=== PATIENT | male | born 1980 | race Caucasian/White ===

== ENCOUNTER 2019-01-09 10:43 | Outpatient (CLI) | payer OTHER ==
--- NOTE | 2019-01-09 12:12 | RAD ---
LUMBAR SPINE 4 VIEWS: HISTORY: Lumbar disk degeneration. Lumbar radiculopathy. COMPARISON: None. FINDINGS: Five lumbar-type vertebral bodies. Lumbar spine vertebral body height is maintained. There is no fr acture. In the neutral position, there is no spondylolisthesis or spondylolysis. No abnormal motion upon extension or flexion in the weightbearing flexion/extension views. Mild loss of disk space height at L5-S1. IMPRESSION: 1. Mild loss of disk space height at L5-S1. 2. No spondylolisthesis. No spondylosis. No abnormal motion upon flexion or extension. POS: ARIES
== END 2019-01-09 10:44 | disposition home or self-care (01) ==
LOC: BICRAD 10:43
PROVIDERS: ATTEND Nurse Practitioner Family
DX: M51.16 Intervertebral disc disorders with radiculopathy, lumbar region (principal); M54.17 Radiculopathy, lumbosacral region
CPT/HCPCS: 72120

== ENCOUNTER 2019-10-29 08:18 | Observation (INO) | payer BC, SELFPAY ==
--- NOTE | 2019-10-29 08:36 | CT ---
Exam: Head CT without contrast HISTORY: Left facial droop and left arm weakness. COMPARISON: none FINDINGS: Hemorrhage: No intraparenchymal hemorrhage or extra-axial hematoma. Brain parenchyma: Cortical mathias-white matter differentiation is preserved. No mass effect or midline shift. Basilar cisterns are patent. Ventricular system: Ventricles and sulci are patent and symmetric. Calvarium: Intact. Sinuses and mastoid air cells: Mild mucosal thickening of the visualized paranasal sinuses IMPRESSION: No acute intracranial process. Results of study discussed with Dr. Munoz 10/31/2019 8:33 AM Code CR
[2019-10-29 08:45] LABS: #Eosinphils 0.3 thou/uL (0.0-0.7); #Lymphocytes 1.8 thou/uL (1.20-3.40); #Monocytes 0.7 thou/uL (0.11-0.59); #Neutrophils 3.1 thou/uL (1.40-6.50); %Basophils 0.6 % (0.0-1.0); %Eosinophils 5.4 % (0.0-10.0); %Lymphocytes 30.7 % (21.0-51.0); %Monocytes 11.6 % (0.0-10.0); %Neutrophils 51.7 % (42.0-75.0); Hemoglobin 14.2 g/dL (14.0-18.0); Mean Corpuscular HGB CONC 33.4 g/dL (32.0-36.0); Mean Corpuscular Hemoglobin 31.3 pg (27.0-31.0); Mean Corpuscular Volume 93.7 fL (78.0-98.0); Mean Platelet Volume 7.1 fL (7.4-10.4); Platelet Count 221 thou/uL (130-400); RBC Distribution Width 11.4 % (11.5-14.5); Red Blood Cell (RBC) Count 4.55 mill/uL (4.70-6.10); White Blood Cell (WBC) Count 5.9 thou/uL (4.8-10.8)
[2019-10-29] MEDS ORDERED: Aspirin Chewable 81 MG TAB ONE (08:54)
[2019-10-29 09:07] LABS: ALT (SGPT) 15 U/L (8-55); AST (SGOT) 17 U/L (5-34); Albumin 4.5 g/dL (3.5-5.0); Alkaline Phosphatase 41 U/L (40-110); Anion Gap 8 mmol/L (10-20); BUN (Urea Nitrogen) 14 mg/dL (8.9-20.6); Bilirubin, Total 0.5 mg/dL (0.2-1.2); Calc. Creatinine Clearance 0 mL/min (70-130); Calcium 9.4 mg/dL (7.8-10.44); Carbon Dioxide 28 mmol/L (22-29); Chloride 105 mmol/L (98-107); Estimated GFR-MDRD 84; Globulin 2.6 g/dL (2.4-3.5); Glucose 99 mg/dL (70-105); Potassium 4.2 mmol/L (3.5-5.1); Protein, Total 7.1 g/dL (6.0-8.3); Sodium 137 mmol/L (136-145)
[2019-10-29 09:14] LABS: Bilirubin Negative (Negative); Blood, Urine Negative (Negative); Clarity Clear (Clear); Glucose, Urine (Dipstick) Normal (Negative); Leukocyte Negative Leu/uL (Negative); Nitrite Negative (Negative); Protein, Urine (Dipstick) Negative (Neg-Trace); Urobilinogen Normal mg/dL (Less than 2)
--- NOTE | 2019-10-29 09:24 | RAD ---
PORTABLE CHEST: Date: 10/29/19 HISTORY: Altered mental status. Syncope. Weakness. FINDINGS: Heart size and mediastinum are within normal limits. The lungs are clear of infiltrates. There are no significant bony findings. IMPRESSION: No active intrathoracic disease. POS: TPC
--- NOTE | 2019-10-29 10:49 | PDOC.FPRHP ---
- History of Present Illness Chief Complaint: L sided weakness History of Present Illness: 39 yo M with no PMH presents for L sided face, arm, and leg weakness that started on waking this morning at 5 AM. Last known normal 0 last night. Pt reports he woke up at 5 to get ready for work, and had blurry vision and was dizzy. He tried to drive to work, but he kept hitting the rumble strips when he thought he was in the middle of the michael so drove back home. states she noticed his L face was drooping, and L leg and arm were dragging. His symptoms have since resolved, although patient admits he is intermittently dizzy. Patient does report he has had some increased stress lately due to his 's mother's recent from cancer. He worries about his . 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 Both patient and are tearful in the room when discussing her mother. ED Course: EKG - sinus CT head -sinus congestion CXR wnl - Allergies/Adverse Reactions Allergies Allergy/AdvReac Type Severity Reaction Status Date / Time No Known Drug Allergies Allergy Verified 10/29/19 11:18 - Home Medications Medication Instructions Recorded Confirmed Type Cetirizine HCl 10 mg PO DAILY PRN 10/29/19 10/29/19 History - History PMHx: chronic back pain with DJD, environmental allergies PSHx: none FHx: father and grandfather - DM2; both his daughters have milagros thyroiditis. No heart disease. Social: 20 oz coke with audelia meléndez nightly; no tobacco or drug use - Review of Systems General: denies: fever/chills, weight/appetite/sleep changes Eyes: reports: vision changes. denies: eye pain ENT: reports: nasal congestion. denies: rhinorrhea Respiratory: reports: congestion. denies: cough, shortness of breath Cardiovascular: denies: chest pain, palpitation Gastrointestinal: denies: nausea, vomiting, diarrhea, constipation, abdominal pain, GI bleeding Genitourinary: denies: incontinence, dysuria, other (no hematuria) Skin: reports: other (he had a slowly healing skin spot on his face, he is going to see radiotelephone operator for) Musculoskeletal: denies: pain, tenderness Neurological: reports: numbness, weakness Psychological: reports: anxiety. denies: depression - Vital signs BP: [155/94] HR: [61] RR: [20] Tmax: [98.8] Pox: [99]% on [RA] Wt: [107 kg] - Physical Exam Constitutional: NAD, awake, alert and oriented HEENT: normocephalic and atraumatic, PERRLA, EOMI, conjunctiva clear, TM's clear and intact, MMM, oropharynx clear, good dention Neck: supple, no LAD Heart: RRR, normal S1/S2, no murmurs/rubs/gallops Lungs: CTAB, no respiratory distress, good air movement, no rales/rhonchi, no wheezing Abdomen: soft, non-tender, no masses/distention Musculoskeletal: normal structure, normal tone Neurological: no focal deficit, CN II-XII intact, normal sensation Skin: no rash/lesions, good turgor, capillary refill <2 seconds Heme/Lymphatic: no unusual bruising or bleeding, no purpura Psychiatric: normal mood and affect, good judgment and insight, intact recent and remote memory FMR H&P: Results - Labs Result Diagrams: 10/29/19 08:34 10/29/19 08:34 Lab results: WBC 5.9 thou/uL (4.8-10.8) 10/29/19 08:34 Hgb 14.2 g/dL (14.0-18.0) 10/29/19 08:34 Hct 42.6 % (42.0-52.0) 10/29/19 08:34 MCV 93.7 fL (78.0-98.0) 10/29/19 08:34 Plt Count 221 thou/uL (130-400) 10/29/19 08:34 Neutrophils % 51.7 % (42.0-75.0) 10/29/19 08:34 Sodium 137 mmol/L (136-145) 10/29/19 08:34 Potassium 4.2 mmol/L (3.5-5.1) 10/29/19 08:34 Chloride 105 mmol/L (98-107) 10/29/19 08:34 Carbon Dioxide 28 mmol/L (22-29) 10/29/19 08:34 BUN 14 mg/dL (8.9-20.6) 10/29/19 08:34 Creatinine 0.99 mg/dL (0.7-1.3) 10/29/19 08:34 Glucose 99 mg/dL (70-105) 10/29/19 08:34 Calcium 9.4 mg/dL (7.8-10.44) 10/29/19 08:34 Total Bilirubin 0.5 mg/dL (0.2-1.2) 10/29/19 08:34 AST 17 U/L (5-34) 10/29/19 08:34 ALT 15 U/L (8-55) 10/29/19 08:34 Alkaline Phosphatase 41 U/L (40-110) 10/29/19 08:34 Serum Total Protein 7.1 g/dL (6.0-8.3) 10/29/19 08:34 Albumin 4.5 g/dL (3.5-5.0) 10/29/19 08:34 Urine Ketones Negative mg/dL (Negative) 10/29/19 08:40 Urine Blood Negative (Negative) 10/29/19 08:40 Urine Nitrite Negative (Negative) 10/29/19 08:40 Ur Leukocyte Esterase Negative Reyna/uL (Negative) 10/29/19 08:40 - EKG Interpretation EKG: NSR FMR H&P: A/P - Problem List (1) TIA (transient ischemic attack) Current Visit: Yes Status: Acute Code(s): G45.9 - TRANSIENT CEREBRAL ISCHEMIC ATTACK, UNSPECIFIED - Plan 39 yo M presents for TIA vs Stroke TIA vs Stroke -L sided weakness, L facial droop, vision changes. Symptoms now resolved. -Current NIH of 0 -CT head negative. EKG NSR. -MRI and CTA Head/neck pending -CBC, CMP, UA are all WNL -random glucose <100, although strong family history of DM, does not have symptoms and random glucose normal, no need for A1C -TSH pending -FLP pending. Calculate ASCVD risk and consider starting a statin -ASA 325 mg; plan to start daily aspirin -Allow permissive hypertension 220/110 PCP: None Diet: Regular DVT ppx: not indicated per RENE scoring criteria. Encourage ambulation. Dispo: Admit to tele obs for monitoring. MRI and CTA pending. Likely discharge to home tomorrow. FMR H&P: Upper Level - Plan Date/Time: 10/29/19 1045 I, [], have evaluated this patient and agree with findings/plan as outlined by market research intern resident. Pertinent changes/additions are listed here.
[2019-10-29] MEDS ORDERED: Acetaminophen 325 MG TAB PO PRN (10:52)
[2019-10-29] MEDS ORDERED: Ondansetron ODT 4 MG TAB PO PRN (10:52)
[2019-10-29 11:04] LABS: Cardiac Risk 3.2 (Less than 4.5)
--- NOTE | 2019-10-29 12:02 | CT ---
INDICATION: Stroke COMPARISON: None TECHNIQUE: CT angiogram of the head and neck are performed in the axial plane. Three-dimensional refo rmatted images are submitted for interpretation. FINDINGS: CTA OF THE HEAD WITH AND WITHOUT CONTRAST: POSTCONTRAST CT OF BRAIN: Pathologic enhancement: No pathologic enhancement the brain. Postcontrast soft tissue neck CT: Sinuses: Mild mucosal thickening of the paranasal sinuses.. Orbits: Bilateral ocular lenses are appropriately located. Both globes are intact. Retrobulbar fat is preserved. Symmetric attenuation the optic nerves and ocular rectus muscles. Salivary glands:Symmetric attenuation Thyroid gland: Mildly heterogeneous Lymph nodes: No evidence of lymphadenopathy by size criteria. Paraspinal muscles: Symmetric attenuation of the sternocleidomastoid muscles. Appropriate attenuation of the paraspinal muscles. Cervical spine:Vertebral body height is maintained. No fracture. No significant central canal stenosi s or significant neural foraminal narrowing. Limited evaluation by technique. Upper mediastinum and lung apices: Unremarkable CTA OF THE NECK WITH CONTRAST: Aorta: Appropriate enhancement and luminal diameter of the visualized aorta Right carotid artery: Appropriate enhancement and luminal diameter. No significant stenosis based upo n NASCET criteria Left carotid: Appropriate enhancement and luminal diameter. No significant stenosis based upon NASCET criteria Subclavian arteries:Symmetric enhancement and luminal diameter. Vertebral arteries:Appropriate enhancement and luminal diameters of the cervical vertebral arteries. Vertebral arteries are essentially codominant CTA OF THE BRAIN: Intracranial internal carotid arteries:Appropriate enhancement and luminal diameter Anterior circulation: Appropriate enhancement and luminal diameter of the A1 and M1 segments. Appropr iate enhancement and luminal diameter the A2 segments and proximal MCA branches Intracranial vertebral arteries: Appropriate enhancement and luminal diameter. Posterior circulation: Appropriate enhancement and luminal diameter the basilar artery and bilateral P1 segments IMPRESSION: 1. No hemodynamically significant stenosis, occlusion or aneurysmal formation. Results of study discussed with Dr. Munoz 10/29/2019 at 11:59 AM Code CR
[2019-10-29 13:09] VITALS: TEMP 97.7
[2019-10-29 13:10] VITALS: BMI 31.2
[2019-10-29] MEDS ORDERED: Iopamidol-370 76% 500 ML 1 ML ONE (13:42)
--- NOTE | 2019-10-29 14:59 | MRI ---
Exam: Brain MRI without contrast HISTORY: Dizziness. COMPARISON: None FINDINGS: Calvarial marrow signal intensity: Appropriate T1 signal Gradient echo sequence: No hemorrhage Brain parenchyma: No mass, mass effect or midline shift. Brain volume, age-appropriate. Cortical mathias-white matter differentiation: Preserved Restricted diffusion: Central arterial flow voids are maintained. Small focus of restricted diffusion involving the medial right thalamus. Associated subtle T2 and FLAIR hyperintensity. White matter signal intensities: T2, FLAIR white matter hyperintensities due to chronic small vessel ischemic changes Sinuses: Adequate aeration of the paranasal sinuses and mastoid air cells. IMPRESSION: Acute small medial right thalamic infarct.
[2019-10-29 15:45] VITALS: BP 116/61
--- NOTE | 2019-10-29 17:48 | PDOC.BPN ---
- Brief Progress Note Patient diagnosed with stroke, seen on MRI. Patient was seen by Dr. Landeros, neurology, who was consulted. He agreed that patient should be on statin and aspirin and will follow up with him outpatient. He has cleared the patient for discharge. Spoke with patient and family. Discussed new diagnosis of hypothyroidism and starting levothyroxine. Patient wishes to follow up with Dr. Oropeza. Patient's NIH score is 0, so physical therapy, occupational therapy, and speech therapy are not indicated. Medications were sent to [facility] on in [place] per family request.
[2019-10-29] MEDS ORDERED: Atorvastatin Calcium 40 MG TAB PO SCH (21:00)
--- NOTE | 2019-10-30 00:36 | CON ---
DATE OF CONSULTATION: 10/29/2019 CONSULTING PHYSICIAN: Hospitalist Service. IMPRESSION: 1. Lacunar stroke in the right thalamus with transient facial droop and slurred speech. 2. No vascular risk factors. PLAN: Continue aspirin and Lipitor. HISTORY OF PRESENT ILLNESS: Mr. Fontana is a healthy 39-year-old gentleman who got up for work and noted that he was feeling a bit dizzy if not vertigo type sensation as he reported. He felt like his vision was a bit distorted. He tried to drive to work, but it was difficult for him to do so. He eventually was seen by some coworkers and noted to have a slight left facial droop, noted that his tongue felt thick and he was having a bit of trouble speaking. He was brought in for further evaluation. His symptoms have since resolved. He denies any prior history of TIA. His MRI confirmed a right thalamic stroke. His CT angiogram was unremarkable. His lab work was all unremarkable as well. He is a bit hypothyroid and was on no medication for this. He has a family history of diabetes, but no other hematologic problems. PAST MEDICAL HISTORY: Negative. ALLERGIES: NONE REPORTED. SOCIAL HISTORY: No tobacco or illicit drug use. FAMILY HISTORY: Diabetes. REVIEW OF SYSTEMS: Ten-system review of systems is otherwise negative. PHYSICAL EXAMINATION: GENERAL: He is a very healthy-appearing middle-aged man, in no acute distress. VITAL SIGNS: Stable. He has been afebrile. HEENT: Pupils are equal and reactive. Conjunctivae are clear. Oropharynx is clear. NECK: Supple. EXTREMITIES: No cyanosis or edema. NEUROLOGIC: He is alert and appropriate. His speech is fluent and clear. He has no focal deficits on exam. His gait is stable and independent. LABORATORY DATA: EKG shows a sinus rhythm. SUMMARY: Given that this is a lacunar stroke in the thalamic region, I do not think there is any chance this could have been a cardioembolic event. 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 I agree with current management. I do not see any need for any further workup. I would be happy to follow up with him as an outpatient. Job ID: [id number]
[2019-10-30] MEDS ORDERED: Levothyroxine Sodium 50 MCG TAB PO SCH (06:00)
[2019-10-30] MEDS ORDERED: Aspirin 81 mg Enteric Coated Tablet PO SCH (09:00)
--- NOTE | 2019-10-30 14:30 | DIS ---
DATE OF ADMISSION: 10/29/2019 DATE OF DISCHARGE: 10/29/2019 RESIDENT: Tahmina Bruk MD ADMITTING ATTENDING: Juan M Grider MD DISCHARGE ATTENDING: Cory Negron MD CONSULTS: Gee Landeros MD, Neurology, 10/29/2019. PROCEDURES PERFORMED: 1. Brain CT, 10/29/2019. Impression: No acute cranial process. 2. Chest x-ray, 10/29/2019. Impression: No active intrathoracic disease. 3. CTA head and neck, 10/29/2019. Impression: No hemodynamically significant stenosis, occlusion or aneurysmal formation. 4. Brain MRI, 10/29/2019. Impression: Acute small medial right thalamic infarct. PRIMARY DIAGNOSIS: Right thalamic infarct. SECONDARY DIAGNOSIS: Hypothyroidism. MEDICATIONS: 1. Aspirin 81 mg p.o. daily. 2. Atorvastatin 40 mg p.o. at bedtime. 3. Levothyroxine 50 mcg oral daily. 4. Cetirizine 10 mg p.o. daily p.r.n. for congestion. DISCONTINUED MEDICATIONS: None. HISTORY OF PRESENT ILLNESS/HOSPITAL COURSE: This is a 39-year-old male with no past medical history, presented for left-sided facial droop, left arm and leg weakness that started on waking this morning at 5:00 a.m. The patient's last known normal was 2130 the night before. The patient reports he woke up, had blurry vision and felt dizzy. He tried to drive but had difficulty staying in his michael, so he drove back home. states that once he got home, she noticed his face was drooping, and his left arm and leg were dragging. His symptoms have since resolved, although the patient admitted he was having intermittent dizziness. The patient did report he had had some increased stress fairly due to his 's mother's recent from cancer and he is concerned for his . 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 In the ED, EKG showed sinus rhythm. CT head was negative and chest x-ray was within normal limits. CT head and neck was negative. MRI showed right thalamic infarct. Dr. Landeros was consulted. The patient's symptoms have totally resolved. The patient was started on daily aspirin, as well as atorvastatin. Patient was diagnosed with hypothyroidism during hospital stay. TSH was checked. On admission, it was elevated at 7.27. Free T4 was 0.61. Thyroid peroxidase IgG was elevated to 280 with less than 25 being normal. He was started on 50 mcg of levothyroxine qd. DISPOSITION: Stable. DISCHARGE INSTRUCTIONS: 1. Location: Home. 2. Diet: Heart healthy. 3. Activity: As tolerated. 4. Followup: Follow up to establish care with PCP Dr. Fabby Oropeza within 1 week. Call to set up follow up with Dr. Landeros, Neurology. Job ID: [id number] [facility]
[2019-10-30 17:00] LABS: EliA Thy New Method **** NEW METHOD ****
== END 2019-10-29 18:11 | disposition home or self-care (01) ==
LOC: ERS 08:18 → ERHOLD 09:37 → 2SE 12:44
PROVIDERS: ADMIT Emergency Medicine; ATTEND Emergency Medicine
DX: I63.9 Cerebral infarction, unspecified (principal); E03.9 Hypothyroidism, unspecified; M47.9 Spondylosis, unspecified
CPT/HCPCS: 36415; 36416; 70450; 70496; 70498; 70551; 71045; 80053; 80061; 81003; 84439; 84443; 84484; 85025; 86376; 93005; G0378; Q9967

== ENCOUNTER 2019-11-26 12:36 | Outpatient (CLI) | payer BC | END 2019-11-26 12:37 | disposition home or self-care (01) | LOC: ULT 12:36 | PROVIDERS: ATTEND Family Medicine | DX: I67.9 Cerebrovascular disease, unspecified (principal); I08.2 Rheumatic disorders of both aortic and tricuspid valves | CPT/HCPCS: 93306 ==

== ENCOUNTER 2022-08-10 11:38 | Outpatient (CLI) | payer BC ==
[~2022-08-10 11:38] MED LIST: Iopamidol 370 76% 100 ML VIAL ONE
== END 2022-08-10 11:39 | disposition home or self-care (01) ==
LOC: CT 11:38
PROVIDERS: ATTEND Internal Medicine Cardiovascular Disease
DX: R07.9 Chest pain, unspecified (principal); I77.810 Thoracic aortic ectasia
CPT/HCPCS: 71275; 75635; Q9967

== ENCOUNTER 2022-11-04 19:00 | Outpatient (CLI) | payer BC | END 2022-11-04 19:01 | disposition home or self-care (01) | LOC: SLEEPLAB 19:00 | PROVIDERS: ATTEND Family Medicine | DX: G47.9 Sleep disorder, unspecified (principal); R06.83 Snoring; G47.00 Insomnia, unspecified; I10 Essential (primary) hypertension; E55.9 Vitamin D deficiency, unspecified; I63.9 Cerebral infarction, unspecified; E03.9 Hypothyroidism, unspecified; I42.9 Cardiomyopathy, unspecified; Q21.12 Patent foramen ovale; G47.33 Obstructive sleep apnea (adult) (pediatric); G47.61 Periodic limb movement disorder; E66.9 Obesity, unspecified; Z68.33 Body mass index [BMI] 33.0-33.9, adult | CPT/HCPCS: 95810 ==